=== PATIENT | female | born 1975 | race Caucasian/White ===

== ENCOUNTER 2017-08-06 07:45 | Emergency (ER) | payer OTHER ==
[~2017-08-06] VITALS: Ht 162.6 cm; Wt 49.9 kg
--- NOTE | 2017-08-06 08:05 | NUR ---
PT TO ED ROOM 01. SOB X 2 DAYS, Hx OF ASTHMA. SYMPTOMS NOT RELIEVED WITH ALBUTEROL INHALER. A/A/O. SIDE RAILS UP. HOB ELEVATED. CONNECTED TO MONITOR. SEEN AND EVALUATED BY ED PROVIDER.
--- NOTE | 2017-08-06 08:06 | NUR ---
PATIENT TO ED DT SOB X 2 DAYS, PATIENT IS AAO4. APPEARS IN NO APPARENT DISTRESS. AFEBRUILE. VSS. Hx OF ASTHMA
--- NOTE | 2017-08-06 08:10 | NUR ---
RT CALLED FOR BREATHING TREATMENT
--- NOTE | 2017-08-06 08:15 | NUR ---
DR. LAM AT BEDSIDE
[2017-08-06] MEDS ORDERED: predniSONE 20 MG TABLET ONE (08:19)
[2017-08-06] MEDS ORDERED: IPRATROPIUM NEB FS 0.5 MG/2.5 ML AMPUL.NEB ONE (08:22)
[2017-08-06] MEDS ORDERED: ALBUTEROL FS 2.5 MG/3 ML VIAL.NEB ONE (08:22)
--- NOTE | 2017-08-06 08:27 | NUR ---
RT AT BEDSIDE
[2017-08-06] MEDS ORDERED: predniSONE 20 MG TABLET PO ONE (08:30)
[2017-08-06] MEDS ORDERED: ALBUTEROL FS 2.5 MG/3 ML VIAL.NEB CONTNEB ONE (08:30)
[2017-08-06] MEDS ORDERED: IPRATROPIUM NEB FS 0.5 MG/2.5 ML AMPUL.NEB NEB ONE (08:30)
[2017-08-06 09:32] VITALS: BP 114/69
--- NOTE | 2017-08-06 09:37 | NUR ---
Patient discharged to home in stable condition. Written and verbal after care instructions given. Patient verbalizes understanding of instruction.
== END 2017-08-06 09:38 | disposition home or self-care (01) ==
LOC: ER 07:51
DX: J45.901 Unspecified asthma with (acute) exacerbation (principal); Z88.0 Allergy status to penicillin
CPT/HCPCS: A4606; Z7610